=== PATIENT | male | born 1945 | race Caucasian/White ===

== ENCOUNTER 2016-08-21 12:03 | Emergency (ER) | payer MEDICARE ==
[2016-08-21 14:03] VITALS: BP 123/52
--- NOTE | 2016-08-21 15:00 | UC ---
Hand/Wrist HPI - History Of Current Complaint Chief Complaint: UCUpperExtremity Stated Complaint: RIGHT WRIST PAIN Time Seen by Provider: 08/21/16 14:20 Hx Obtained From: Patient Onset/Duration: Gradual Onset, Lasting Weeks - 12, Worse Since - onset. Severity Initially: Mild Severity Currently: Moderate Character Of Pain: Aching, Throbbing Aggravating Factor(s): Movement, Lifting Alleviating: Ice, Other - wrist brace. 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, Hypertension Respiratory History Of: Reports: COPD GI/ History Of: Reports: Ulcer - Surgical History Surgical History: Yes Surgery Procedure, Year, and Place: Bilateral Knee Replacements, [place] - Family History Known Family History: Positive: None, Hypertension - Social History Occupation: Employed Full-time Lives: With Family Alcohol Use: Occasionally Substance Use Type: None Smoking Status (MU): Heavy Every Day Tobacco Smoker Type: Cigarettes Amount Used/How Often: 1/2 pack daily Have You Smoked in the Last Year: Yes Cessation Counseling: Patient Advised to Stop - Immunization History Most Recent Influenza Vaccination: 2015/2016 Review of Systems All Other Systems Reviewed And Are Negative: Yes Physical Exam Triage Information Reviewed: Yes Appearance: Well-Appearing, Well-Nourished, Obese Vital Signs: Initial Vital Signs Pulse 96 08/21/16 13:53 Resp 16 08/21/16 13:53 BP 123/52 08/21/16 13:53 Pulse Ox 97 08/21/16 13:53 Vital Signs Reviewed: Yes Eyes: Positive: Conjunctiva Clear Neck exam: Normal Respiratory Exam: Normal Cardiovascular Exam: Normal Musculoskeletal: Positive: 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 Neuritis/ neuralgia Discharge - Discharge Plan Condition: Stable Disposition: HOME Prescriptions: Gabapentin CAP(*) [Neurontin 300 CAP(*)] 300 mg PO BEDTIME #30 cap Patient Education Materials: Arthralgia (ED) Referrals: Carolina Pugh PA [Primary Care Provider] - Alondra Hand MD [Medical Doctor] - 1 Day (to evaluate wrist pain with swollen area and numbness.) Additional Instructions: Continue to use the wrist brace for comfort.
== END 2016-08-21 15:16 | disposition home or self-care (01) ==
LOC: UCCORT 12:03
DX: M25.531 Pain in right wrist (principal); M79.2 Neuralgia and neuritis, unspecified; I51.89 Other ill-defined heart diseases; I10 Essential (primary) hypertension; J44.9 Chronic obstructive pulmonary disease, unspecified; E66.9 Obesity, unspecified; Z96.653 Presence of artificial knee joint, bilateral; F17.210 Nicotine dependence, cigarettes, uncomplicated
CPT/HCPCS: 99211; G0463